=== PATIENT | male | born 1990 | race Hispanic/Latino ===

== ENCOUNTER 2016-11-03 19:44 | Emergency (ER) | payer SELFPAY ==
[~2016-11-03] VITALS: Ht 172.7 cm; Wt 70.0 kg
[2016-11-03] MEDS ORDERED: BENADRYL 50MG C50 MG PO (20:26)
[2016-11-03] MEDS ORDERED: BENADRY2 EX (20:26)
[2016-11-03] MEDS ORDERED: MEDDOSEPAK PO (20:26)
[2016-11-03 20:44] VITALS: BP 126/74
== END 2016-11-03 20:44 | disposition home or self-care (01) | DRG 607 ==
LOC: ED 19:44
DX: L23.9 Allergic contact dermatitis, unspecified cause (principal)